=== PATIENT | male | born 1995 | race Caucasian/White ===

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

== ENCOUNTER 2017-02-15 13:58 | Emergency (ER) | payer OTHER ==
[~2017-02-15] VITALS: Ht 185.4 cm; Wt 96.1 kg
[2017-02-15] MEDS ORDERED: KEFLEX500 MG PO (16:09)
[2017-02-15] MEDS ORDERED: MOTRIN800 MG PO (16:09)
[2017-02-15] MEDS ORDERED: BACTRIM,SEPT1 TABLET PO (16:09)
[2017-02-15 16:38] VITALS: BP 128/68
== END 2017-02-15 16:40 | disposition home or self-care (01) ==
LOC: EME 13:58
PROC: 0H97XZZ Drainage of Abdomen Skin, External Approach (ICD-10-PCS; principal; 2017-02-15)
DX: L02.211 Cutaneous abscess of abdominal wall (principal); L03.311 Cellulitis of abdominal wall; F17.200 Nicotine dependence, unspecified, uncomplicated
CPT/HCPCS: 87070; 87075; 87077; 87147; 87186; 87205; 99281; 99284

== ENCOUNTER 2017-03-11 13:21 | Emergency (ER) | payer OTHER ==
[~2017-03-11] VITALS: Ht 185.4 cm; Wt 98.7 kg
[~2017-03-11 13:21] MED LIST changes: +BACTRIM,SEPT1 TABLET PO; +KEFLEX500 MG PO
[2017-03-11 13:27] VITALS: BP 140/89
[2017-03-11] MEDS ORDERED: NAPROSYN500 MG PO (14:36)
== END 2017-03-11 14:41 | disposition home or self-care (01) ==
LOC: EME 13:21
DX: S62.326A Displaced fracture of shaft of fifth metacarpal bone, right hand, initial encounter for closed fracture (principal); W22.09XA Striking against other stationary object, initial encounter; Z91.19 Patient's noncompliance with other medical treatment and regimen; F17.200 Nicotine dependence, unspecified, uncomplicated
CPT/HCPCS: 73130; 99281; 99283